=== PATIENT | male | born 1995 | race Two or more races ===

== ENCOUNTER 2023-03-14 14:36 | Emergency (ER) | payer MEDICAID, OTHER ==
[~2023-03-14] VITALS: Ht 177.8 cm; Wt 84.5 kg
[2023-03-14 15:23] VITALS: BP 122/81
== END 2023-03-14 15:51 | disposition home or self-care (01) ==
LOC: ER 14:36
DX: S61.210A Laceration without foreign body of right index finger without damage to nail, initial encounter (principal); W26.8XXA Contact with other sharp object(s), not elsewhere classified, initial encounter; Y93.89 Activity, other specified; Y92.89 Other specified places as the place of occurrence of the external cause; Y99.8 Other external cause status
CPT/HCPCS: 12002